=== PATIENT | male | born 1955 | race Caucasian/White ===

== ENCOUNTER → 2023-06-15 | Outpatient (CLI) | payer OTHER | END | disposition home or self-care (01) | LOC: MRI 16:40 | PROVIDERS: ATTEND Family Medicine Sports Medicine | DX: S83.212A Bucket-handle tear of medial meniscus, current injury, left knee, initial encounter (principal); M17.12 Unilateral primary osteoarthritis, left knee; M25.562 Pain in left knee; M94.262 Chondromalacia, left knee; M25.462 Effusion, left knee; X58.XXXA Exposure to other specified factors, initial encounter; Y93.89 Activity, other specified; Y92.89 Other specified places as the place of occurrence of the external cause; Y99.8 Other external cause status | CPT/HCPCS: 73721 ==

== ENCOUNTER 2024-06-05 16:02 | Emergency (ER) | payer BC, OTHER ==
[~2024-06-05] VITALS: Ht 182.9 cm; Wt 110.0 kg
[2024-06-05 16:10] VITALS: TEMP 97.8
--- NOTE | 2024-06-05 16:25 | Physician Documentation ---
History of Present Illness ~ Chief Complaint: Abscess Stated Complaint: ABSCESS Time Seen by MD: 16:37 HPI This is a 68-year-old male who presents with a painful reddened area to his left lower abdomen that has been getting larger in size over the past three weeks, patient reports it started out as a hard spot and has gradually gotten larger over this time. Patient reports that he was seen at an urgent care and sent to the emergency department due to concern for abscess. Patient reports no fever, chills, or other systemic symptoms. Patient does report he does inject Ozempic into his abdomen and affected area is one of the sites as he was injected Ozempic into before. Medication Reconciliation Allergies: Coded Allergies: No Known Allergies (Unverified , 06/05/24) Scheduled Cephalexin*Monohydrate* (Keflex*), 1 CAP PO QID Sulfamethoxazole/Trimethoprim (Septra Ds Tab), 1 TAB PO Q12H Past Medical History Past Medical History: Diabetes Review of Systems ROS Pain and swelling to skin of left lower quadrant abdomen as stated above in the HPI, otherwise all systems are reviewed and negative. Physical Exam Vital Signs: Temperature: 97.8, Source: Oral, Heart Rate: 102, Respiratory Rate: 17, BP: 141/48, Pulse Oximetry: 96, Weight: 110.000 Oxygen Flow Rate: 0 Physical Exam VITALS: Reviewed and as above. GENERAL: Alert, nontoxic appearing, no apparent distress. RESPIRATORY: No increased work of breathing, no respiratory distress, speaking in full clear sentences SKIN: Approximately 5 cm x 5 cm reddened area to the skin of left lower abdomen with an area of induration palpated under the skin Procedures I & D Procedure : Site: Skin of left lower abdomen Anesthesia: Lidocaine Volume Anesthetic (mls): 8 Blade Size: 11 Prep/Supplies: drapes applied, dressing applied, packing placed Incision: mass incised, pus drained, blood drained Tolerated Procedure Well?: yes, no complications Procedure Note Ultrasound guidance utilized for initial needle aspiration of the abscess which was further expanded with a 1 cm incision utilizing an 11 blade, the area was probed with hemostats and loculations broken up. The area was then packed with 8 cm of quarter-inch plain packing gauze and a dressing applied. Procedure closely supervised by ED attending MD Dr. Martin Progress Results/Orders Results/Orders Orders - ROBERT MISHRA Laceration/I&D Tray Set Up (06/05/24 17:30) Cult (Aer) Routine C&S+Gram St (06/05/24 18:47) Completed Orders - ROBERT MISHRA MEDICAL RECORD CODER Cbc/Diff (06/05/24 16:40) BMP (06/05/24 16:40) Tetanus/Pertuss/Diph Acell/Pf (Boostrix (06/05/24 17:30) Lidocaine 1% 30ml Vial (Xylocaine 1% Via (06/05/24 17:30) Cephalexin Capsule (Keflex Capsule) (06/05/24 19:00) Sulfamethox/Trimetho. Ds Tab (Septra Ds (06/05/24 19:00) Medications Received in ER Medications (Trade) Dose Ordered Sig/David Route PRN Reason Start Time Stop Time Status Last Admin Dose Admin (Boostrix vaccine syringe) 0.5 ml ONCE ONCE IMVAC 06/05/24 17:30 06/05/24 17:33 DC 06/05/24 18:42 0.5 ML (Keflex capsule) 500 mg ONCE ONCE PO 06/05/24 19:00 06/05/24 19:01 DC 06/05/24 19:06 500 MG (Septra DS tab) 1 tab ONCE ONCE PO 06/05/24 19:00 06/05/24 19:01 DC 06/05/24 19:06 1 TAB Vital Signs 06/05/24 06/05/24 16:10 19:09 Temp 97.8 Pulse 102 98 Resp 17 16 B/P (MAP) 141/48 135/46 Pulse Ox 96 98 O2 Flow Rate 0 Laboratory Tests Test 06/05/24 16:45 White Blood Count 6.0 Red Blood Count 5.47 Hemoglobin 15.7 Hematocrit 46.8 Mean Corpuscular Volume 85.6 Mean Corpuscular Hemoglobin 28.7 Mean Corpuscular Hemoglobin Concent 33.5 Red Cell Distribution Width 15.8 H Platelet Count 202 Mean Platelet Volume 7.8 Neutrophils (%) (Auto) 58.3 Lymphocytes (%) (Auto) 29.7 Monocytes (%) (Auto) 9.1 Eosinophils (%) (Auto) 1.7 Basophils (%) (Auto) 1.2 H Neutrophils # (Auto) 3.5 Lymphocytes # (Auto) 1.8 Monocytes # (Auto) 0.6 Eosinophils # (Auto) 0.1 Basophils # (Auto) 0.1 CBC Comment Sodium Level 137 Potassium Level 4.1 Chloride Level 101 Carbon Dioxide Level 27.0 Anion Gap 9 Blood Urea Nitrogen 29 H Creatinine 1.36 H Estimated GFR/1.73 m2 52 BUN/Creatinine Ratio 21.3 H Glucose Level 96 Calcium Level 9.1 Albumin 4.2 Chemistry Comments Medical Decision Making Findings This 68-year-old male with a history of diabetes presented to the emergency department with three weeks of progressively worsening pain and swelling to the skin of his left lower abdomen, physical exam demonstrated area of erythema with palpable induration under the skin, point of care ultrasound of the area demonstrated evidence of fluctuant mass amenable to drainage consistent with a subcutaneous abscess. The area was anesthetized and prepped with chlorhexidine, then utilizing ultrasound guidance an 18 gauge needle was placed into the area of fluctuance and approximately 2 cc of blood and purulent material were expressed before the area was further incised with an 11 blade, probed and de- loculated with hemostats with no further purulent material drained, the area was then packed with quarter-inch plain packing and covered with a dressing. Patient tolerated procedure well there was no complications. A sample of purulent material was sent to lab for culture. Patient reported no pain site after the area was anesthetized therefore further pain medications were not indicated at this time, remainder of physical exam was benign and vital signs stable, labs did not demonstrate evidence of systemic infection or metabolic derangement, additionally it was reassuring patient reported no fever chills or other systemic symptoms. Patient is appropriate for outpatient follow up, plan will be for patient to return in 24 hours for packing change and reassessment. Patient will be discharged on dual coverage antibiotics. Patient provided careful return to care precautions and home care instructions which patient verbalized understanding of. Differential Dx:Considerations: Include: Bacteremia, Cellulitis, Gas gangrene, Septicemia, Other (Lipoma, tumor, hernia) Departure Time of Disposition: 18:50 Disposition: 01 HOME / SELF CARE / HOMELESS Impression: Primary Impression: Abscess Condition: Improved Discharge Instructions: Abscess, Care After, Incision and Drainage, Skin Absc ess, [id number] Additional Instructions: Keep the area clean dry and covered, change the dressing twice a day. Please return in one day for a wound check and packing replacement with the plan to return again on Monday night when you return from your vacation for another reassessment and possible room packing change or removal. Monitor for signs of infection such as worsening pain or swelling to the area or if you develop a fever. Please take the antibiotics as prescribed. You may use ibuprofen and or Tylenol as needed for pain as directed by [id number] packaging. Please follow up with your primary care provider in the next few days. Please return to the emergency department for any new or worsening concerning symptoms in cluding but not limited to signs of infection. Referrals: NO PRIMARY CARE PROVIDER (PCP) Prescriptions Sulfamethoxazole/Trimethoprim (Septra Ds Tab) 800 Mg/160 Mg Tablet 1 TAB PO Q12H for 7 Days, #14 TAB Prov: ROBERT MISHRA 06/05/24 Cephalexin*Monohydrate* (Keflex*) 500 Mg Capsule 1 CAP PO QID for 7 Days, #28 CAP Prov: ROBERT MISHRA 06/05/24 Education Educated: Patient Educated regarding: diagnosis, treatment, prognosis, need for follow up Signature Scribe Signature: No scribe Attestation: The note accurately reflects work and decisions made by me.INÉS Becerril 06/05/24 22:17 ROBERT MISHRA Jun 05, 2024 16:24
[2024-06-05 16:54] LABS: BASOPHILS # (AUTO) 0.1 X10'3 (0-0.2); BASOPHILS % (AUTO) 1.2 % (0-1); EOSINOPHILS # (AUTO) 0.1 X10'3 (0-0.9); EOSINOPHILS % (AUTO) 1.7 % (0-6); HEMATOCRIT 46.8 % (42.0-52.0); HEMOGLOBIN 15.7 g/dl (14.0-17.9); LYMPHOCYTES # (AUTO) 1.8 X10'3 (1.1-4.8); LYMPHOCYTES % (AUTO) 29.7 % (21-51); MEAN CORPUSCULAR HEMOGLOBIN 28.7 PG (27.0-31.0); MEAN CORPUSCULAR HGB CONC 33.5 g/dL (33.0-36.5); MEAN CORPUSCULAR VOLUME 85.6 FL (78-98); MEAN PLATELET VOLUME 7.8 FL (7.4-10.4); MONOCYTES # (AUTO) 0.6 X10'3 (0-0.9); MONOCYTES % (AUTO) 9.1 % (2-12); NEUTROPHILS # (AUTO) 3.5 X10'3 (1.8-7.7); NEUTROPHILS % (AUTO) 58.3 % (42-75); PLATELET COUNT 202 X10'3 (140-440); RED BLOOD COUNT 5.47 X10'6 (4.70-6.10); RED CELL DISTRIBUTION WIDTH 15.8 % (11.5-14.5)
[2024-06-05 17:12] LABS: ALBUMIN 4.2 G/DL (3.4-5.0); ANION GAP 9 (8-16); BLOOD UREA NITROGEN 29 MG/DL (7-18); BUN/CREATININE RATIO 21.3 (10.0-20.0); CALCIUM 9.1 MG/DL (8.5-10.1); CHLORIDE 101 MMOL/L (99-107); CREATININE 1.36 MG/DL (0.60-1.10); GLUCOSE 96 MG/DL (70-104); POTASSIUM 4.1 MMOL/L (3.5-5.1); SODIUM 137 MMOL/L (135-145); eCRCL 57 ML/MIN; eGFR 52 ML/MIN
[2024-06-05] MEDS: LIDOcaine 1% 30ml preserv. free vial IJ ONE (18:18)
[2024-06-05] MEDS: TETanus/Pertussis (Acell)/Diphther VAC/PF (Tdap-Adult) 0.5ml syringe IMVAC ONE (18:42)
[2024-06-05] MEDS ORDERED: SULF1TAB45 PO (18:54)
[2024-06-05] MEDS ORDERED: CEPH-585 PO (18:54)
[2024-06-05] MEDS: cephalexin 250mg capsule PO ONE (19:06)
[2024-06-05] MEDS: sulfamethoxazole/trimethoprim DS (800/160mg) tablet PO ONE (19:06)
[2024-06-05 19:09] VITALS: BP 135/46; PULSE 98; RESP 16; O2SAT 98
== END 2024-06-05 19:11 | disposition home or self-care (01) ==
LOC: ER 16:03
DX: L02.211 Cutaneous abscess of abdominal wall (principal); E11.9 Type 2 diabetes mellitus without complications
CPT/HCPCS: 10060; 36415; 80048; 85025; 87070; 90471; 90715; 99284; A6407; A6449

== ENCOUNTER 2024-06-06 15:14 | Emergency (ER) | payer BC ==
[~2024-06-06] VITALS: Ht 182.9 cm; Wt 110.3 kg
[~2024-06-06 15:14] MED LIST: CEPH-585 PO; SULF1TAB45 PO
[2024-06-06 15:15] VITALS: BP 136/73; PULSE 104; RESP 16; O2SAT 94
--- NOTE | 2024-06-06 16:38 | Physician Documentation ---
History of Present Illness ~ Chief Complaint: Wound Re-Check Stated Complaint: WOUND CHECK Time Seen by MD: 16:36 Primary Medical Doctor: Arsh CHANDRA [facility] [place] HPI This 68-year-old male presents back to the emergency department for wound recheck and wound repacking after having an abscess drained yesterday, patient reports he feels well and has not had any fever chills or other systemic symptoms. Patient reports the area is feeling better and is less painful. Tetanus within 5 years?: No Medication Reconciliation Allergies: Coded Allergies: No Known Allergies (Unverified , 06/05/24) Scheduled Cephalexin*Monohydrate* (Keflex*), 1 CAP PO QID Sulfamethoxazole/Trimethoprim (Septra Ds Tab), 1 TAB PO Q12H Past Medical History Past Medical History: Diabetes Review of Systems ROS Wound to left lower abdomen as stated above in the HPI, otherwise all systems are reviewed and negative. Physical Exam Vital Signs: Temperature: 98.9, Source: Oral, Heart Rate: 104, Respiratory Rate: 16, BP: 136/73, Pulse Oximetry: 94, Weight: 110.300 Oxygen Flow Rate: 0 Physical Exam VITALS: Reviewed and as above. GENERAL: Alert, nontoxic appearing, no apparent distress. RESPIRATORY: No increased work of breathing, no respiratory distress, speaking in full clear sentences SKIN: 1 cm incision and packed wound to skin of left lower abdomen appears to be healing well, minimal bloody drainage, no purulent drainage, minimal erythema, no ecchymosis, 10 cm quarter-inch packing removed without purulence observed. The area of subcutaneous induration has decreased size approximately 2 cm x 2 cm decreased from 4 cm x 3 cm Progress Results/Orders Results/Orders Orders - ROBERT MISHRA Laceration/I&D Tray Set Up (06/06/24 16:41) Dressing Orders (06/06/24 16:41) Vital Signs 06/06/24 06/06/24 15:15 17:38 Temp 98.9 98.9 Pulse 104 Resp 16 B/P (MAP) 136/73 Pulse Ox 94 O2 Flow Rate 0 Medical Decision Making Findings This 68-year-old male who I saw yesterday for abscess drainage from the left lower abdomen presents back to the emergency department for wound recheck and repacking of the abscess, the wound appears to be healing very well. Patient reports decrease in pain in the area and that pain has been well managed at home with [id number] medications, patient reports no fever, chills, or other systemic symptoms. Additionally patient reports he has not noticed any drainage from the wound. A 10 cm piece of packing material was removed from the wound and the wound repacked with 8 cm of new quarter-inch iodoform packing material without complication, patient is is to follow up in 2-3 days for another wound recheck and packing change. It was reassuring the area of subcutaneous induration has decreased since yesterday. A dressing was applied and patient is appropriate for outpatient follow up. Patient provided return to care precautions which she verbalized understanding of. Differential Dx:Considerations: Include: Abscess, Cellulitis, Dressing change, Healing wound Departure Time of Disposition: 17:29 Disposition: HOME / SELF CARE / HOMELESS Impression: Primary Impression: Abscess Condition: Improved Discharge Instructions: Abscess, Care After Additional Instructions: Keep the area clean , dry and covered. Be aware for signs of infection such as increased pain and swelling, or increased drainage from the area, or if you develop a fever. Please return Monday afternoon/night for another wound check and possible packing replacement. Please follow up with your primary care provider in the next few days. Please return to the emergency department for any new or worsening concerning symptoms. Continue to use ibuprofen and or Tylenol as needed as directed by [id number] packaging for pain. Referrals: NO PRIMARY CARE PROVIDER (PCP) Education Educated: Patient Educated regarding: diagnosis, treatment, prognosis, need for follow up Signature Scribe Signature: No scribe Attestation: The note accurately reflects work and decisions made by me.INÉS Becerril 06/06/24 21:55 ROBERT MISHRA June 06, 2024 16:37
[2024-06-06 17:38] VITALS: TEMP 98.9
== END 2024-06-06 17:39 | disposition home or self-care (01) ==
LOC: ER 15:14
DX: K65.1 Peritoneal abscess (principal); E11.9 Type 2 diabetes mellitus without complications; Z79.899 Other long term (current) drug therapy
CPT/HCPCS: 99282; A6266; 99281

== ENCOUNTER 2024-06-09 13:57 | Emergency (ER) | payer BC ==
[~2024-06-09] VITALS: Ht 182.9 cm; Wt 117.7 kg
[2024-06-09 13:59] VITALS: BP 135/77; PULSE 106; RESP 16; O2SAT 97
--- NOTE | 2024-06-09 14:30 | Physician Documentation ---
History of Present Illness ~ Chief Complaint: Wound Re-Check Stated Complaint: WOUND RECHECK Time Seen by MD: 14:17 Primary Medical Doctor: Arsh CHANDRA [facility] HPI 68-year-old male type 2 diabetic returns to emergency department for wound check the status post incision and drainage to left lower abdomen abscess. Reports he has been taking his antibiotics as directed and doing well. Denies any fevers. Denies any increase in blood sugars. Tetanus within 5 years?: No Medication Reconciliation Allergies: Coded Allergies: No Known Allergies (Unverified , 06/05/24) Scheduled Cephalexin*Monohydrate* (Keflex*), 1 CAP PO QID Sulfamethoxazole/Trimethoprim (Septra Ds Tab), 1 TAB PO Q12H Past Medical History Past Medical History: Diabetes Review of Systems All Other Systems at this time: Reviewed and Negative Constitutional: Denies: fever Gastrointestinal: Reports: abdominal pain Physical Exam Vital Signs: RN Vital Signs have been reviewed: Yes, Temperature: 98.7, Source: Oral, Heart Rate: 106, Respiratory Rate: 16, BP: 135/77, Pulse Oximetry: 97, Weight: 117.700 Oxygen Flow Rate: 0 General Appearance: alert, WD/WN EENT: normal ENT inspection Cardiovascular: normal peripheral pulses Respiratory: no respiratory distress Gastrointestinal: normal palpation Back: normal inspection Extremities: normal inspection Skin: other (Small incision in the left lower abdomen, quarter-inch gauze in place, it removed with mild discharge only on it. No erythema. Mild induration.) Neurologic: oriented x4 Lymphatics: normal inspection Psychiatric: normal mood/affect Progress Results/Orders Results/Orders Vital Signs 06/09/24 06/09/24 13:59 14:36 Temp 98.7 98.7 Pulse 106 Resp 16 B/P (MAP) 135/77 Pulse Ox 97 O2 Flow Rate 0 Medical Decision Making Additional Comment 68-year-old male status post incision and drainage. Third visit the emergency department regarding wound check. Healing well without discharge or erythema today mild induration only. Patient to continue with antibiotic therapy. No need for further packing. Sterile gauze dressing applied. Patient was safely discharged. Departure Disposition: HOME / SELF CARE / HOMELESS Impression: Primary Impression: Encounter for wound re-check Discharge Instructions: Wound Care, Adult Additional Instructions: Please continue allow the wound to heal by secondary intentions. Warm moist soaks a couple times a day continue with your antibiotics. Return to the emergency department if develops fever, increased pain or redness. Thank you for visiting [facility] emergency department. Referrals: NO PRIMARY CARE PROVIDER (PCP) Education Educated: Patient Educated regarding: diagnosis, treatment Signature Scribe Signature: . Attestation: . VIRGIL PETERSEN PAC June 09, 2024 14:30
[2024-06-09 14:36] VITALS: TEMP 98.7
== END 2024-06-09 14:37 | disposition home or self-care (01) ==
LOC: ER 13:58
DX: Z48.00 Encounter for change or removal of nonsurgical wound dressing (principal); E11.9 Type 2 diabetes mellitus without complications
CPT/HCPCS: 99281